=== PATIENT | male | born 1980 | race Caucasian/White ===

== ENCOUNTER 2020-07-08 23:06 | Emergency (ER) | payer OTHER ==
[~2020-07-08] VITALS: Ht 177.8 cm; Wt 109.0 kg
[2020-07-08 23:06] VITALS: BP 157/92
[2020-07-08] MEDS ORDERED: DEXT10TA23 PO (23:17)
[2020-07-08] MEDS ORDERED: UNABLE MC (23:18)
--- NOTE | 2020-07-08 23:19 | PHYS DOC ---
General Adult EDM: Chief Complaint: KNEE INJURY HPI: HPI: Patient is a 40 year old male who presents with is a [employer] traffic [employer] and was on a call tonight when he was going down some stairs and felt a " tweak" in the left knee and now it hurts to bend the knee or put pressure on the knee. Patient was brought in by [employer] and was walking but limping on that extremity. Patient rates his pain 5 out of 10. Patient states the pain is to the medial part of the knee. Review of Systems: Review of Systems: Constitutional: Denies fever or chills. [] Eyes: Denies change in visual acuity. [] HENT: Denies nasal congestion or sore throat. [] Respiratory: Denies cough or shortness of breath. [] Cardiovascular: Denies chest pain. + Left knee 2+ edema. [] GI: Denies abdominal pain, nausea, vomiting, bloody stools or diarrhea. [] : Denies dysuria. [] Musculoskeletal: Denies back pain. + Left knee joint pain. [] Integument: Denies rash. [] Neurologic: Denies headache, focal weakness or sensory changes. [] Endocrine: Denies polyuria or polydipsia. [] Lymphatic: Denies swollen glands. [] Psychiatric: Denies depression or anxiety. [] Heart Score: Risk Factors: Risk Factors: DM, Current or recent (<one month) smoker, HTN, HLP, family history of CAD, obesity. Risk Scores: Score 0 - 3: 2.5% MACE over next 6 weeks - Discharge Home Score 4 - 6: 20.3% MACE over next 6 weeks - Admit for Clinical Observation Score 7 - 10: 72.7% MACE over next 6 weeks - Early Invasive Strategies Current Medications: Current Medications Medications (Trade) Dose Ordered Sig/Nataly Start Time Stop Time Status Last Admin Dose Admin Ibuprofen (Motrin) 800 mg 1X ONCE 07/08/20 23:15 07/08/20 23:16 UNV Physical Exam: PE: Constitutional: Well developed, well nourished, no acute distress, non-toxic appearance. [] HENT: Normocephalic, atraumatic, bilateral external ears normal, oropharynx moist, no oral exudates, nose normal. [] Eyes: PERRLA, EOMI, conjunctiva normal, no discharge. [] Neck: Normal range of motion, no tenderness, supple, no stridor. [] Cardiovascular:Heart rate regular rhythm, no murmur [] Lungs & Thorax: Bilateral breath sounds clear to auscultation [] Abdomen: Bowel sounds normal, soft, no tenderness, no masses, no pulsatile masses. [] Skin: Warm, dry, no erythema, no rash. [] Back: No tenderness, no CVA tenderness. [] Extremities: No tenderness, no cyanosis, no clubbing, left knee ROM limited in tact, left knee 2+ edema. [] Neurologic: Alert and oriented X 3, normal motor function, normal sensory fun ction, no focal deficits noted. [] Psychologic: Affect normal, judgement normal, mood normal. [] EKG: EKG: [] Radiology/Procedures: Radiology/Procedures: [] Impression: [facility] [address] [place] [address] IMAGING REPORT Signed PATIENT: DANNY DOHERTY ACCOUNT: [id number] : 1980 LOCATION: ER AGE: 40 SEX: M EXAM STATUS: PRE ER ORD. PHYSICIAN: NILSA WILSON APRN REASON: injury, pain, hurts to bend PROCEDURE: KNEE LEFT 4V Study: XR KNEE _4 VIEWS WITH PATELLA_LT Indication: Pain. Injury. Comparison: None. Findings: No acute fracture. Femorotibial alignment is anatomic. Normally located patella. Abnormally prominent soft tissues superficial to the patella and extending downward along the patellar tendon. Possible small knee joint effusion seen at the suprapatellar recess. Impression: 1. No acute fracture or traumatic malalignment. 2. Prominent soft tissues superficial to the patella and patellar tendon. This could be related to contusion and/or fluid within the bursa. There may be a small knee joint effusion as well. Electronically signed by: LOPEZ GREGORIO MD (07/08/2020 11:40 PM) [facility] DICTATED and SIGNED BY: LOPEZ GREGORIO MD DATE: 07/08/20 [id number] 0 Course & Med Decision Making: Course & Med Decision Making Pertinent Labs and Imaging studies reviewed. (See chart for details) See HPI. Alert and oriented x4. Ambulatory but limping on the left extremity. He does have control over the knee joint itself. There does not seem to be any laxity. Patient refused any hydrocodone but stated he would take some ibuprofen. Ice is applied. There is 2+ edema to the knee joint. There is no deformity. Patient placed in a left knee immobilizer. Pedal pulse strong present. Skin pink warm and dry. Full range of motion to hip and ankle and can wiggle all of his toes. Denies any pain to any other joints on the extremity. I have referred the patient to a orthopedic. [] Dragon Disclaimer: Dragon Disclaimer: This electronic medical record was generated, in whole or in part, using a voice recognition dictation system. Departure Departure Impression: Primary Impression: Knee injury Qualified Codes: S89.92XA - Unspecified injury of left lower leg, initial encounter Disposition: 01 DC HOME SELF CARE/HOMELESS Condition: STABLE Referrals: GORDO SKELTON MD Patient Instructions: Knee Effusion Additional Instructions: Follow-up with an orthopedic or your work comp doctor. Wear the knee immobilizer until you are seen by orthopedic. Take pain medications as prescribed. Scripts Ibuprofen (IBUPROFEN) 800 Mg Tablet 800 MG PO PRN Q8HRS PRN for INFLAMMATION, #25 TAB Prov: NILSA WILSON APRN 07/08/20 Hydrocodone/Apap 5-325 (NORCO 5-325 TABLET) 1 Each Tablet 1 TAB PO PRN Q6HRS PRN for PAIN, #12 TAB 0 Refills Prov: NILSA WILSON APRN 07/08/20 NILSA WILSON APRN Jul 08, 2020 23:19
[2020-07-08] MEDS ORDERED: IBUPROFEN 400 MG TABLET. PO ONE (23:30)
--- NOTE | 2020-07-08 23:42 | RAD ---
Study: XR KNEE _4 VIEWS WITH PATELLA_LT Indication: Pain. Injury. Comparison: None. Findings: No acute fracture. Femorotibial alignment is anatomic. Normally located patella. Abnormally prominent soft tissues superficial to the patella and extending downward along the patella r tendon. Possible small knee joint effusion seen at the suprapatellar recess. Impression: 1. No acute fracture or traumatic malalignment. 2. Prominent soft tissues superficial to the patella and patellar tendon. This could be related to co ntusion and/or fluid within the bursa. There may be a small knee joint effusion as well. Electronically signed by: LOPEZ GREGORIO MD (07/08/2020 11:40 PM) [facility]
[2020-07-08] MEDS ORDERED: IBUP-1060 PO (23:48)
[2020-07-08] MEDS ORDERED: HYDR-3164 PO (23:48)
== END 2020-07-09 01:00 | disposition home or self-care (01) ==
LOC: ER 23:06
DX: S89.92XA Unspecified injury of left lower leg, initial encounter (principal); M25.462 Effusion, left knee; X50.9XXA Other and unspecified overexertion or strenuous movements or postures, initial encounter; Y93.01 Activity, walking, marching and hiking; Y92.89 Other specified places as the place of occurrence of the external cause; Y99.8 Other external cause status
CPT/HCPCS: 29505; 73564; 99283

== ENCOUNTER → 2020-07-20 | Outpatient (CLI) | payer OTHER ==
[2020-07-08 23:06] VITALS: BP 157/92
[~2020-07-20] MED LIST: DEXT10TA23 PO; HYDR-3164 PO; IBUP-1060 PO; UNABLE MC
--- NOTE | 2020-07-20 10:55 | KCIC ---
XR EYE_DETECT FOREIGN BODY History: Reason: SCREENING PER STANDING PROTOCOL FOR MRI / Spl. Instructions: Previous metal to the l eft eye, MRI today. / History: Technique: 2 views orbits Comparison: None. Findings: No radiopaque foreign body. Normal alignment. Impression: 1. No radiopaque foreign body. Electronically signed by: Francisco Javier Crabtree DO (07/20/2020 10:53 AM) [id number]
--- NOTE | 2020-07-20 16:08 | KCIC ---
STUDY: MRI of the left knee without contrast INDICATION: Left knee pain. COMPARISON: None. TECHNIQUE: Multiplanar MR imaging of the left knee performed without the use of intravenous or intra- articular contrast. FINDINGS: Study degradation on account of motion. Menisci: As best appreciated on the sagittal T2 sequence, abnormal T2 signal elevation at the medial meniscocapsular interface along the posterior horn to the posterior horn/root junction concerning for meniscocapsular injury. This is best appreciated on image 18 series 7. The lateral meniscus is intac t. Cruciate ligaments: Intact. Collateral ligaments: Intact. Tendons: Intact. Cartilage: Noting motion, no high-grade or full-thickness chondral defect is seen at the femorotibial or patellofemoral compartments. Bones: Marrow signal is within normal limits. Miscellaneous: Heterogeneous fluid collection extending in the craniocaudal dimension by approximatel y 4 cm from the mid aspect of the patella to the mid aspect of the patellar tendon. This measures up to 3.3 cm transverse by 0.8 cm in depth. Very small knee joint effusion. IMPRESSION: 1. Heterogeneous fluid collection extending from the mid aspect of the patella down to the mid aspec t of the patellar tendon measuring 3.3 x 4 x 0.8 cm. A portion of this likely relates to hemorrhagic prepatellar bursitis though given the inferior extent there is likely a component of degloving injury as well (Mel-Bettina lesion). Correlate for any recent trauma to the anterior knee. 2. Findings suspicious for meniscocapsular injury along the posterior horn of the medial meniscus (i mage 18 series 7). Intact cruciate and collateral ligaments. Electronically signed by: LOPEZ GREGORIO MD (07/20/2020 4:06 PM) [place] [id number]
== END ==
LOC: KCIC MRI 10:36
PROVIDERS: ATTEND Physician Assistant
DX: Z13.5 Encounter for screening for eye and ear disorders (principal); S89.92XA Unspecified injury of left lower leg, initial encounter; M25.462 Effusion, left knee; M23.8X2 Other internal derangements of left knee; X58.XXXA Exposure to other specified factors, initial encounter; Y93.89 Activity, other specified; Y92.89 Other specified places as the place of occurrence of the external cause; Y99.8 Other external cause status
CPT/HCPCS: 70030; 73721